=== PATIENT | female | born 1985 | race Caucasian/White ===

== ENCOUNTER 2017-06-30 05:08 | Inpatient (IN) | payer BC, OTHER ==
[2017-06-30] MEDS ORDERED: Albuterol/Ipratropium 3.0-0.5 MG/3 ML Neb Soln NEB ONE (05:29)
[2017-06-30] MEDS ORDERED: Dextrose 5%-Lactated Ringers 1,000 ML IV SCH (05:30)
[2017-06-30] MEDS ORDERED: Scopolamine 1.5 MG Transdermal Patch TOP ONE (05:32)
[2017-06-30] MEDS ORDERED: Acetaminophen 500 MG Tab PO ONE (05:32)
[2017-06-30] MEDS ORDERED: Celecoxib 200 MG Cap PO ONE (05:35)
[2017-06-30] MEDS ORDERED: cefOXitin 2 GM Vial ONE (06:40)
[2017-06-30] MEDS ORDERED: Meropenem 500 MG SDV ONE (06:40)
[2017-06-30] MEDS ORDERED: cefOXitin 2 GM in Sodium Chloride 0.9% 50 ML IV ONE ×2 (07:00→07:15)
[2017-06-30] MEDS ORDERED: Propofol 200 MG/20 ML SDV ONE ×2 (07:06→07:08)
[2017-06-30] MEDS ORDERED: Dexamethasone 4 MG/ML SDV ONE (07:06)
[2017-06-30] MEDS ORDERED: Succinylcholine 200 MG/10 ML MDV ONE ×2 (07:06→07:08)
[2017-06-30] MEDS ORDERED: Ondansetron 4 MG/2 ML SDV ONE (07:06)
[2017-06-30] MEDS ORDERED: Neostigmine Methylsulfate 1 MG/ML 5 ML Syringe ONE (07:08)
[2017-06-30] MEDS ORDERED: Glycopyrrolate 0.2 MG/ML 5 ML MDV ONE (07:08)
[2017-06-30] MEDS ORDERED: Lidocaine 2% 100 MG/5 ML Syringe IVPUSH ONE ×2 (08:00→08:45)
[2017-06-30] MEDS ORDERED: Lidocaine 0.4%/D5W 2 GM/500 ML BAG IV SCH (08:00)
[2017-06-30] MEDS ORDERED: Ketamine 500 MG/5 ML MDV IV SCH (08:00)
[2017-06-30] MEDS ORDERED: Ropivacaine 58 ML, Dexamethasone 8 MG, EPINEPHrine 0.4 MG, Sodium Chloride 0.9% 19.6 ML NERVRT SCH ×4 (08:00)
[2017-06-30] MEDS ORDERED: Labetalol 20 MG/4 ML Syringe ONE (08:17)
[2017-06-30] MEDS ORDERED: fentaNYL 100 MCG/2 ML SDV IVPUSH ONE (09:39)
[2017-06-30] MEDS ORDERED: hydrOXYzine HCl 100 MG/2 ML SDV IM ONE ×2 (09:45→11:45)
[2017-06-30] MEDS ORDERED: Ondansetron 4 MG/2 ML SDV IVPUSH ONE (09:45)
[2017-06-30] MEDS: Metoclopramide 10 MG/2 ML SDV IVPUSH PRN ×2 (11:30→19:23)
[2017-06-30] MEDS ORDERED: Meperidine PF 100 MG/ML Syringe IM ONE (11:45)
[2017-06-30] MEDS ORDERED: Ondansetron 4 MG/2 ML SDV IVPUSH PRN (12:00)
[2017-06-30] MEDS ORDERED: Albuterol/Ipratropium 3.0-0.5 MG/3 ML Neb Soln INH PRN (12:00)
[2017-06-30] MEDS ORDERED: hydrOXYzine HCl 100 MG/2 ML SDV IM PRN (12:00)
[2017-06-30] MEDS ORDERED: diphenhydrAMINE 50 MG/ML SDV IVPUSH PRN (12:00)
[2017-06-30] MEDS: Pantoprazole 40 MG Vial IVPUSH SCH (13:07)
[2017-06-30] MEDS: cefOXitin 2 GM in Sodium Chloride 0.9% 50 ML IV SCH ×2 (13:08→19:29)
[2017-06-30] MEDS: Dextrose 5%-Lactated Ringers 1,000 ML IV SCH ×2 (13:15→23:17)
[2017-06-30] MEDS: Acetaminophen Soln 650 MG/20.3 ML UD Cup PO SCH ×2 (14:47→21:10)
[2017-06-30] MEDS: Albuterol/Ipratropium 3.0-0.5 MG/3 ML Neb Soln INH SCH ×2 (14:52→22:32)
[2017-06-30] MEDS: MVI, Adult with Vitamin K 10 ML, Thiamine 200 MG, Chromium/Copper/Mang/Selen/Zn 1 ML in... IV SCH ×4 (16:07)
[2017-06-30] MEDS ORDERED: Heparin Sodium 5,000 Units/ML Vial SUBCUT SCH (18:00)
[2017-06-30] MEDS ORDERED: Coagulation Factor VIIa Recombinant (per MCG) 2 MG Vial IVPUSH STA (18:09)
[2017-06-30] MEDS: LORazepam 2 MG/ML MDV IVPUSH PRN (22:14)
[2017-07-01] MEDS ORDERED: Iohexol 647 MG/ML 50 ML SDV PO SCH (02:00)
[2017-07-01] MEDS: Acetaminophen Soln 650 MG/20.3 ML UD Cup PO SCH ×2 (02:21→14:44)
[2017-07-01] MEDS: LORazepam 2 MG/ML MDV IVPUSH PRN ×4 (02:25→22:25)
[2017-07-01] MEDS: cefOXitin 2 GM in Sodium Chloride 0.9% 50 ML IV SCH ×2 (02:35→07:00)
[2017-07-01] MEDS: Dextrose 5%-Lactated Ringers 1,000 ML IV SCH ×2 (05:53→23:41)
[2017-07-01] MEDS: Albuterol/Ipratropium 3.0-0.5 MG/3 ML Neb Soln INH SCH ×4 (07:20→20:36)
[2017-07-01] MEDS ORDERED: Albuterol 8 GM Inhaler INH PRN (07:50)
[2017-07-01] MEDS ORDERED: Albuterol/Ipratropium 3.0-0.5 MG/3 ML Neb Soln INH PRN (07:50)
[2017-07-01] MEDS ORDERED: Ketorolac 60 MG/2 ML SDV IM ONE (08:00)
[2017-07-01] MEDS ORDERED: Celecoxib 200 MG Cap PO SCH (08:00)
[2017-07-01] MEDS ORDERED: Acetaminophen 1,000 MG in Premix Bag 1 BAG IV SCH (08:00)
[2017-07-01] MEDS ORDERED: Acetaminophen/HYDROcodone 108-2.5 MG/5 ML Soln 15 ML UD Cup PO SCH (08:00)
--- NOTE | 2017-07-01 08:42 | PN ---
DATE OF SERVICE: 07/01/2017 SUBJECTIVE: Yasmine has been having some difficulty swallowing. Her upper GI did show that she was tight but it is emptying. Her lidocaine was discontinued during the night. REVIEW OF SYSTEMS: Remainder of review of systems negative for any pertinent positives and negatives. OBJECTIVE: GENERAL: Yasmine Hernandez is a 32-year-old female. VITAL SIGNS: TPR is 98.9, 94, 18, blood pressure 140/89. HEENT: Negative. NECK: Supple. HEART: Regular rate and rhythm. LUNGS: Clear. ABDOMEN: Dressings dry and intact. Abdominal binder is on. CHAYA drain has put out 85 mL of a light pink drainage. EXTREMITIES: Without peripheral edema. ASSESSMENT: Laparoscopic Milton-en-Y gastric bypass surgery. PLAN: 1. Sips of clear liquids. 2. Decrease IV to 100 mL per hour. 3. Change acetaminophen to 1000 mg IV q.6 hours today. 4. Start albuterol inhaler 2 puffs q.4 hours p.r.n. shortness of breath. 5. Albuterol ipratropium 3 mL inhaled as directed every 6 hours p.r.n. as she takes at home. 6. Flexeril 10 mg t.i.d. p.r.n. muscle spasms. 7. Lexapro 20 mg p.o. daily. 8. Hydrochlorothiazide 25 mg p.o. daily. 9. Discontinue Celebrex today and give Toradol 60 mg IM 1 time. She is unable to swallow pills. The other pills they are nursing staff, either open or crush. 10.Good pulmonary toilet. 11.We will evaluate p.r.n. or in a.m. Aggie Webber PA-C /[id number]
--- NOTE | 2017-07-01 08:44 | CR ---
UGI wo KUB HISTORY: eval R -Y GBP FINDINGS: After administration of oral contrast, upright views were obtained. Post operative changes gastric bypass. Surgical drains in place. No evidence for leak. Contrast passes freely into proximal small bowel loops. IMPRESSION: No evidence for leak or obstruction.
[2017-07-01] MEDS: Acetaminophen 1,000 MG in Premix Bag 1 BAG IV PRN ×2 (10:40→19:57)
[2017-07-01] MEDS: Escitalopram 20 MG Tab PO SCH (10:41)
[2017-07-01] MEDS: Hydrochlorothiazide 25 MG Tab PO SCH (10:41)
[2017-07-01] MEDS: Metoclopramide 10 MG/2 ML SDV IVPUSH PRN ×2 (10:41→18:30)
[2017-07-01] MEDS: SCOPOLAMINE PATCH CHECK TOP SCH (10:41)
[2017-07-01] MEDS: Cyclobenzaprine 10 MG Tab PO PRN (10:41)
[2017-07-01] MEDS: Pantoprazole 40 MG Vial IVPUSH SCH (12:19)
[2017-07-01] MEDS ORDERED: Acetaminophen/HYDROcodone 108-2.5 MG/5 ML Soln 15 ML UD Cup PO PRN (14:00)
[2017-07-01] MEDS: MVI, Adult with Vitamin K 10 ML, Thiamine 200 MG, Chromium/Copper/Mang/Selen/Zn 1 ML in... IV SCH ×4 (15:45)
[2017-07-01] MEDS: Labetalol 20 MG/4 ML Syringe IVPUSH PRN ×2 (21:40→22:53)
[2017-07-02] MEDS: LORazepam 2 MG/ML MDV IVPUSH PRN ×2 (03:53→22:16)
[2017-07-02] MEDS: Acetaminophen 1,000 MG in Premix Bag 1 BAG IV PRN (03:55)
[2017-07-02] MEDS: Albuterol/Ipratropium 3.0-0.5 MG/3 ML Neb Soln INH SCH ×4 (07:21→21:55)
[2017-07-02] MEDS ORDERED: methylPREDNISolone Sodium Succinate 40 MG/1 ML SDV IVPUSH SCH (08:00)
--- NOTE | 2017-07-02 08:26 | PN ---
DATE OF SERVICE: 07/02/2017 SUBJECTIVE: Yasmine is postop day #2. She is able to swallow a little bit better today. Within the past 24 hours, she did have 540 in. She feels like it is starting to open up a little bit. REVIEW OF SYSTEMS: Remainder of review of systems negative for any pertinent positives and negatives. OBJECTIVE: GENERAL: Yasmine Hernandez is a 32-year-old female. She is lying in bed. She is more talkative today, feeling better. VITAL SIGNS: TPR is 98.6, 70, 17, blood pressure 153/96. HEENT: Negative. NECK: Supple. HEART: Regular rate and rhythm. LUNGS: Clear. ABDOMEN: Dressings dry and intact. Abdominal binder is on. CHAYA drain intact, draining a pink serosanguineous drainage. EXTREMITIES: Without peripheral edema. ASSESSMENT: Laparoscopic Milton-en-Y gastric bypass surgery. PLAN: 1. Step-1 diet start gradually. 2. Rx Solu-Medrol 80 mg IV q.12 hours today, give 3 med cups to try to drink 1 q.20 minutes or 3 per hour. 3. Dressing off, may shower. 4. We will evaluate p.r.n. or in a.m. Aggie Webber PA-C /[id number]
[2017-07-02] MEDS ORDERED: Cyanocobalamin (Vitamin B12) 1,000 MCG/ML SDV IM ONE (09:00)
[2017-07-02] MEDS: Escitalopram 20 MG Tab PO SCH (09:31)
[2017-07-02] MEDS: Hydrochlorothiazide 25 MG Tab PO SCH (09:31)
[2017-07-02] MEDS: SCOPOLAMINE PATCH CHECK TOP SCH (09:32)
[2017-07-02] MEDS: Cyclobenzaprine 10 MG Tab PO PRN (09:40)
[2017-07-02] MEDS: Dextrose 5%-Lactated Ringers 1,000 ML IV SCH (11:07)
[2017-07-02] MEDS: Pantoprazole 40 MG Vial IVPUSH SCH (11:32)
[2017-07-03] MEDS: Albuterol/Ipratropium 3.0-0.5 MG/3 ML Neb Soln INH SCH ×2 (07:13→11:10)
[2017-07-03] MEDS ORDERED: Pantoprazole 40 MG Delayed-Release Granules 1 Packet PO SCH (07:30)
[2017-07-03] MEDS ORDERED: methylPREDNISolone Sodium Succinate 125 MG/2 ML SDV IVPUSH ONE (08:30)
[2017-07-03] MEDS: Escitalopram 20 MG Tab PO SCH (08:32)
[2017-07-03] MEDS: Hydrochlorothiazide 25 MG Tab PO SCH (08:32)
--- NOTE | 2017-07-06 09:44 | OR ---
DATE OF PROCEDURE: 06/30/2017 PREOPERATIVE DIAGNOSIS: Morbid obesity. POSTOPERATIVE DIAGNOSES: 1. Morbid obesity. 2. Marked hepatomegaly. 3. Peritoneal nodules over surface of omentum and lesser curvature of stomach. OPERATIVE PROCEDURE: 1. Laparoscopic Milton-en-Y gastric bypass along with gastroenterostomy (92799). 2. [place]-Cut needle liver biopsy (95290). 3. Excision of peritoneal nodule overlying omentum (42538). 4. Excision of a peritoneal nodule over lesser curvature of the stomach (07552). ANESTHESIA: General. INDICATIONS FOR PROCEDURE: A 32-year-old female presenting with longstanding morbid obesity and increasingly significant comorbidities. After preoperative evaluation and discussion, she wished to proceed with a gastric bypass procedure. Potential risks of the procedure including bleeding, infection, leaks from the various GI tract closures, problems with bowel obstruction over time, as well as possibility of cardiopulmonary, septic, or hemorrhagic complications leading to , were all discussed, and the patient wishes to proceed. DETAILS OF PROCEDURE: The patient was taken to the operating room and placed in a supine position. After general endotracheal anesthesia was induced, she was converted to a lithotomy position and orogastric tube, and the abdomen was then prepped and draped. At 15 cm inferior, 5 cm left of xiphoid process, a transverse incision was made and peritoneal cavity entered under direct vision with an Optiview trocar. The peritoneal cavity was inflated to 15 mmHg pressure with CO2 and laparoscope reinserted. No underlying trocar insertion site injuries were seen. At this point, bilateral subcostal transversus abdominis plane blocks were placed using standard solution. The location of the needle was visually confirmed to be just underneath the peritoneum within the transversus abdominis muscle. Following this, 5 additional trocars were placed across the upper mid abdomen, and general exploration was undertaken. The patient was noted to have a marked hepatomegaly with the liver volume being roughly 2 or 3 times normal. Liver grossly fatty infiltrated. During the course of dissection, 2 reddish peritoneal nodules were identified. These were uncertain in nature. One was a nodule over the midportion of the omentum, which measured around 4 mm. This was excised using Harmonic scalpel. A second nodule was then noted subsequently on the lesser curvature of the stomach, more or less flush with the attachment with the lesser omentum, which measured around 8 mm in size. This likewise was excised. At this point, the omentum was divided in the midline up to the level of the transverse colon. This allowed identification of the small bowel to the ligament of Treitz. The small bowel was then traced out 200 cm distal to that point, was divided transversely with a UMU stapler. The small bowel was then traced out additional 200 cm, where a caun-yq-ysuh enteroenterostomy was accomplished with an internal firing of the Endo-UMU 60 mm stapler. The common opening was then closed transversely with the same stapler, the angles anastomosed, and mesenteric defect approximated with some 0 Ethibond stitch, along with fibrin sealant. The divided end of the Milton limb was from the mesentery for a few centimeters, which allowed an antecolic position of the Milton limb up to the level of the gastroesophageal junction without tension. The liver was then retracted anteriorly. The patient was noted not to have any significant hiatal hernia. The gastrointestinal balloon catheter was inflated to 15 mL and pulled up snugly against the EG junction. Gastric wall over the apex balloon was marked with electrocautery, and the balloon catheter was deflated and pulled up from the esophagus. The lesser omental tissue adjacent to gastric cardia was then incised, allowing dissection behind the stomach at that level. The pouch formation was initiated with a transverse firing of the UMU stapler at the level of the cauterized angela on the gastric cardia. The pouch was then completed with 2 additional firings of the UMU stapler up to and through the angle of His. Upon completion of the pouch, both staple lines were noted to be intact. The anvil of a 25 mm EEA stapler was attached to a [place] sump type tube. The latter was brought down through the mouth and taken out through a small opening in the gastric pouch, allowing the anvil likewise to be pulled down to within the gastric pouch. The divided end of the Milton limb was then opened and main body of the EEA stapler was passed several centimeters in the lumen of the small bowel, brought up the anvil and united with it, thus creating the gastrojejunostomy. The anastomosis was then reinforced with some 3-0 Vicryl seromuscular stitch, along with fibrin sealant. A leak test was accomplished with injection of 120 mL of air in the gastric pouch while submerged with cefoxitin-containing saline solution. No leaks were identified. A single Elmo-Castano drain was taken out through the left subcostal trocar site and placed adjacent to the gastrojejunostomy and from there up into the splenic fossa. At that point, no further problems noted, trocars were removed, and the peritoneal cavity was deflated. The incisions were closed with some 4-0 Vicryl skin stitch, which was also used to affix the drain. Dressings were applied. The patient was taken to the recovery room in satisfactory condition. There were no evident complications. Chris Roberto MD /[id number]
--- NOTE | 2017-07-06 11:24 | DISCH ---
ADMISSION DIAGNOSES: 1. Morbid obesity with body mass index of 40.6. 2. Post-traumatic stress disorder. 3. Hypothyroidism. 4. Mild intermittent asthma, "treatment agreement.". 5. Chronic pain medication. 6. Chronic neck pain. 7. Recurrent major depression disorder. 8. Dysthymia. DISCHARGE DIAGNOSIS: Laparoscopic Milton-en-Y gastric bypass surgery. HISTORY: Yasmine Hernandez is a 32-year-old female with longstanding history of morbid obesity and increasing comorbidities. After preoperative evaluation and discussion of possible risks and benefits, she wished to proceed with surgical procedure. HOSPITAL COURSE: Yasmine had her surgery on 06/30/2017. She had no operative complications. On postoperative day #1, she had some dysphagia, with difficulty swallowing. On 07/02/2017, she was started on Solu-Medrol 80 mg IV, and after the first dose, she was able to start on a step-1 gastric bypass diet, and her oral intake was 1280. She was up ambulating. Vital signs were stable. She has received adequate dietary instruction, and she was ready to be discharged to home on postoperative day #3, on 07/03/2017. PHYSICAL EXAMINATION: GENERAL: Yasmine Hernandez is a 32-year-old female. VITAL SIGNS: Height is 5 feet 7 inches and weight is 259 pounds. TPR with temperature of 97.9, pulse of 103, respirations of 16; and blood pressure of 142/83. HEENT: Negative. NECK: Supple. HEART: Regular rate and rhythm. LUNGS: Clear. ABDOMEN: Sutures look good. 4x4's over CHAYA drain site. Abdominal binder is on. EXTREMITIES: Without peripheral edema. DISPOSITION: Discharged to home. CONDITION: Stable and improving. FOLLOWUP APPOINTMENT: On 07/07/2017 at 9:15 a.m. at [place], [place]. HOME MEDICATIONS: 1. Zofran ODT 4 mg every four hours p.r.n. nausea. 2. Medrol 4 mg Dosepak, take as directed. 3. She is to resume her home medication of Celebrex 200 mg daily for 14 days. 4. Alprazolam 0.5 mg oral daily p.r.n. anxiety. 5. ProAir inhaler two puffs inhalation every six hours p.r.n. shortness of breath. 6. Flexeril 10 mg three times a day p.r.n. muscle spasms. 7. Lexapro 20 mg oral daily. 8. Hydrochlorothiazide 25 mg oral daily. 9. Hydrocodone/acetaminophen 10/325 one tablet every 8 hours p.r.n. pain. 10.Synthroid 100 mcg oral daily. 11.Depo-Provera continue as scheduled. 12.Discontinue taking the meloxicam. DIET AFTER DISCHARGE: Step-1 gastric bypass diet with protein shakes only. Drink 64 ounces of water daily. ACTIVITY: No lifting greater than 10 pounds for two weeks. Walk at least six times daily inside your house. Driving, do not drive for one week or while on pain medication. Shower/bathing, she may shower. WOUND CARE: Keep operative site clean and dry. Wound incision care, wear abdominal binder for two weeks, and then as tolerated. DISCHARGE INSTRUCTIONS: Notify provider if any fever, increased pain, drainage, nausea, vomiting, and use incentive spirometer 10 times every hour while awake for two weeks.
== END 2017-07-03 10:45 | disposition home or self-care (01) | DRG 621 ==
LOC: JP.SDS 05:08 → JP.SDSSCHI 05:08 → EDSTATUS 07:30 → JP.2SS 09:15
PROVIDERS: ADMIT Surgery; ATTEND Surgery
PROC: 0D164ZA Bypass Stomach to Jejunum, Percutaneous Endoscopic Approach (ICD-10-PCS; principal; 2017-06-30)
PROC: 0FB04ZX Excision of Liver, Percutaneous Endoscopic Approach, Diagnostic (ICD-10-PCS; 2017-06-30)
PROC: 0DBU4ZX Excision of Omentum, Percutaneous Endoscopic Approach, Diagnostic (ICD-10-PCS; 2017-06-30)
PROC: 0DB64ZX Excision of Stomach, Percutaneous Endoscopic Approach, Diagnostic (ICD-10-PCS; 2017-06-30)
PROC: 3E0T3BZ Introduction of Anesthetic Agent into Peripheral Nerves and Plexi, Percutaneous Approach (ICD-10-PCS; 2017-06-30)
DX: E66.01 Morbid (severe) obesity due to excess calories (principal); Z68.41 Body mass index [BMI] 40.0-44.9, adult; R16.0 Hepatomegaly, not elsewhere classified; K31.89 Other diseases of stomach and duodenum; K92.89 Other specified diseases of the digestive system; I10 Essential (primary) hypertension; E11.9 Type 2 diabetes mellitus without complications; G89.29 Other chronic pain; J45.20 Mild intermittent asthma, uncomplicated; E03.9 Hypothyroidism, unspecified; F32.9 Major depressive disorder, single episode, unspecified; F43.10 Post-traumatic stress disorder, unspecified; Z86.14 Personal history of Methicillin resistant Staphylococcus aureus infection; Z79.891 Long term (current) use of opiate analgesic; Z88.0 Allergy status to penicillin; Z88.2 Allergy status to sulfonamides; Z88.8 Allergy status to other drugs, medicaments and biological substances; F34.1 Dysthymic disorder; R13.10 Dysphagia, unspecified; M54.2 Cervicalgia
CPT/HCPCS: 36415; 74240; 74240-26; 82962; 86850; 86900; 86901; 88305; 88307; 88313; 88341; 88342; 94640; A9270-GY; C9113; J0131; J0171; J0330; J0694; J1100; J1885; J2001; J2060; J2175; J2185; J2405; J2704; J2710; J2765; J2795; J2920; J2930; J3010; J3410; J3411; J3420; J7030; J7042; J7050; J7189; J7620; Q9967

== ENCOUNTER 2017-08-27 07:53 | Day surgery (SDC) | payer OTHER ==
[2017-08-27] MEDS ORDERED: Lactated Ringers 1,000 ML IV SCH (09:00)
[2017-08-27] MEDS ORDERED: Cyanocobalamin (Vitamin B12) 1,000 MCG/ML SDV IM ONE (09:00)
[2017-08-27] MEDS ORDERED: Glycopyrrolate 0.2 MG/ML 2 ML SYRINGE IVPUSH ONE (09:30)
[2017-08-27] MEDS ORDERED: Midazolam 1 MG/ML 2 ML SDV ONE (10:21)
[2017-08-27] MEDS ORDERED: Propofol 200 MG/20 ML SDV ONE (10:21)
[2017-08-27] MEDS ORDERED: fentaNYL 100 MCG/2 ML SDV ONE (10:21)
[2017-08-27] MEDS ORDERED: MVI, Adult with Vitamin K 10 ML, Thiamine 200 MG, Chromium/Copper/Mang/Selen/Zn 1 ML in... IV ONE ×4 (10:30)
--- NOTE | 2017-08-31 18:04 | OR ---
DATE OF PROCEDURE: 08/27/2017 PREOPERATIVE DIAGNOSIS: Probable stricture at gastrojejunostomy. POSTOPERATIVE DIAGNOSIS: Stricture at gastrojejunostomy. OPERATIVE PROCEDURE: Upper GI endoscopy with dilation of gastrojejunostomy (87708). ANESTHESIA: IV sedation. INDICATION FOR PROCEDURE: This is a 32-year-old female status post Milton-en-Y gastric bypass on 08/31/2016 and she presents now with symptoms suggestive of stricturing at her gastrojejunostomy. Plan is to proceed with an upper GI endoscopy with dilation as indicated. Potential risks including bleeding and perforation were discussed, and the patient wishes to proceed. DETAILS OF PROCEDURE: The patient was taken to the operating room and placed in a left lateral decubitus position. IV sedation was administered, after which the upper GI endoscope was passed orally through the length of the esophagus and into the gastric pouch. No retained food or fluid was noted. The patient was noted to have a moderate stricture at the gastrojejunostomy with estimated diameter of around 8 mm. A Bard gastrointestinal balloon catheter was centered across the anastomosis and inflated to 36-Kinyarwanda size. This was held in position for 1 minute, after which the balloon catheter was deflated and withdrawn. The scope was then easily passed through the anastomosis. No complications noted. The procedure concluded. The patient was taken to the recovery room in satisfactory condition. Chris Roberto MD /[id number]
== END 2017-08-27 12:00 | disposition home or self-care (01) ==
LOC: JP.SDS 07:53
PROVIDERS: ATTEND Surgery
DX: K95.89 Other complications of other bariatric procedure (principal); Z88.0 Allergy status to penicillin; Z88.2 Allergy status to sulfonamides; Z88.8 Allergy status to other drugs, medicaments and biological substances
CPT/HCPCS: J2250; J2704; J3010; J3411; J3420; J7120

== ENCOUNTER 2017-09-18 06:50 | Day surgery (SDC) | payer OTHER ==
[2017-09-18] MEDS ORDERED: Lactated Ringers 1,000 ML IV SCH ×2 (07:30→10:45)
[2017-09-18] MEDS ORDERED: Cyanocobalamin (Vitamin B12) 1,000 MCG/ML SDV IM ONE (07:30)
[2017-09-18] MEDS ORDERED: fentaNYL 100 MCG/2 ML SDV ONE (07:32)
[2017-09-18] MEDS ORDERED: Midazolam 1 MG/ML 2 ML SDV ONE (07:32)
[2017-09-18] MEDS ORDERED: Propofol 200 MG/20 ML SDV ONE (07:32)
[2017-09-18] MEDS ORDERED: Glycopyrrolate 0.2 MG/ML 2 ML SYRINGE IVPUSH ONE (07:45)
[2017-09-18] MEDS ORDERED: MVI, Adult with Vitamin K 10 ML, Thiamine 200 MG, Chromium/Copper/Mang/Selen/Zn 1 ML in... IV ONE ×4 (09:00)
--- NOTE | 2017-09-18 09:30 | OR ---
DATE OF PROCEDURE: 09/18/2017 PREOPERATIVE DIAGNOSIS: Nausea and vomiting, status post Milton-en-Y gastric bypass on June 30, 2017; possible strictured gastrojejunostomy. POSTOPERATIVE DIAGNOSIS: Nausea and vomiting, status post Milton-en-Y gastric bypass on June 30, 2017; possible strictured gastrojejunostomy. No evidence of strictured gastrojejunostomy. PROCEDURE: Esophagogastrojejunostomy. ANESTHESIA: IV anesthesia with monitored anesthesia care. INDICATION: This 32-year-old white female underwent a Milton-en-Y gastric bypass on June 30, 2017 for morbid obesity. Almost a month ago, she had to undergo a gastric dilatation for a stricture at her gastrojejunostomy. This was manifested by nausea and vomiting. She now notes recurrence of the nausea and vomiting, and is referred for a repeat upper endoscopy with dilatation. I counseled her for this, and she gave her informed consent to proceed. DESCRIPTION OF PROCEDURE: The patient was placed in the left lateral decubitus position. IV anesthesia was administered by the Anesthesia Service. Time-out was held. The flexible video Olympus upper endoscope was passed through her mouth, down her esophagus, and into her gastric remnant. The scope was easily passed through the anastomosis into the jejunum. There was no evidence of stricture. It appeared widely patent. The scope was then withdrawn examining the mucosa throughout. The mucosa throughout appeared unremarkable. The scope was then removed. She tolerated the procedure well. Leeroy Bailey MD /[id number]
[2017-09-18] MEDS ORDERED: Hyoscyamine 0.125 MG Tab.SL SL ONE (10:20)
== END 2017-09-18 11:21 | disposition home or self-care (01) ==
LOC: JP.SDS 06:50
PROVIDERS: ATTEND Surgery
DX: R11.2 Nausea with vomiting, unspecified (principal); J45.909 Unspecified asthma, uncomplicated; E03.9 Hypothyroidism, unspecified; Z98.84 Bariatric surgery status; Z88.2 Allergy status to sulfonamides; Z88.8 Allergy status to other drugs, medicaments and biological substances; Z88.0 Allergy status to penicillin
CPT/HCPCS: 43235; A9270; J2250; J2704; J3010; J3411; J3420; J7120

== ENCOUNTER 2017-09-23 05:45 | Day surgery (SDC) | payer OTHER ==
[2017-09-23] MEDS ORDERED: Lactated Ringers 1,000 ML IV ONE (06:30)
[2017-09-23] MEDS ORDERED: Cyanocobalamin (Vitamin B12) 1,000 MCG/ML SDV IM ONE (07:00)
[2017-09-23] MEDS ORDERED: Midazolam 1 MG/ML 2 ML SDV ONE (07:11)
[2017-09-23] MEDS ORDERED: fentaNYL 100 MCG/2 ML SDV ONE (07:11)
[2017-09-23] MEDS ORDERED: Propofol 200 MG/20 ML SDV ONE (07:11)
[2017-09-23] MEDS ORDERED: Glycopyrrolate 0.2 MG/ML 2 ML SDV IVPUSH ONE (07:15)
[2017-09-23] MEDS ORDERED: MVI, Adult with Vitamin K 10 ML, Thiamine 100 MG, Chromium/Copper/Mang/Selen/Zn 1 ML in... IV ONE ×4 (07:30)
[2017-09-23] MEDS ORDERED: Escitalopram 20 MG Tab PO ONE (08:30)
--- NOTE | 2017-09-23 15:58 | OR ---
DATE OF PROCEDURE: 09/23/2017 PREOPERATIVE DIAGNOSIS: Nausea status post Milton-en-Y gastric bypass. POSTOPERATIVE DIAGNOSIS: Nausea status post Milton-en-Y gastric bypass with a mild stricture of gastrojejunostomy. OPERATIVE PROCEDURE: Upper GI endoscopy with dilation of gastrojejunostomy. ANESTHESIA: IV sedation. INDICATION FOR PROCEDURE: This is a 32-year-old status post Milton-en-Y gastric bypass in June. She presents now with some nausea, and the plan is to proceed with upper GI endoscopy with dilation as indicated. Potential risks including bleeding and perforation were discussed, and the patient wishes to proceed. DETAILS OF PROCEDURE: The patient was taken to the operating room and placed in a left lateral decubitus position. IV sedation was administered, after which the upper GI endoscope was passed orally through the length of the esophagus, into the stomach pouch, and from there through the gastrojejunostomy roughly 20 cm into the Milton limb. The patient did have a very mild stricture of the gastrojejunostomy with a 1-cm scope being able to be gently passed through that area. There otherwise were no significant inflammation noted. Bard gastrointestinal balloon catheter was then centered across the anastomosis and inflated to 45-Romansh size which did produce some additional diameter of the gastrojejunostomy. No complications were noted. The scope was then withdrawn. The procedure then concluded. At this point, we will begin the patient on some Levsin 0.125 mg sublingual q.i.d. x5 days and then q.i.d. p.r.n., #50, refill x2; and then Zofran 4 mg ODT q.4 hours p.r.n. nausea, #25, refill x3. We will set her up to follow up with Aggie Webber at [facility] in [place] on 10/06/2017. Chris Roberto MD /[id number]
== END 2017-09-23 10:22 | disposition home or self-care (01) ==
LOC: JP.SDS 05:45
PROVIDERS: ATTEND Surgery
DX: K95.89 Other complications of other bariatric procedure (principal); J45.909 Unspecified asthma, uncomplicated; E03.9 Hypothyroidism, unspecified; E66.9 Obesity, unspecified; Z88.0 Allergy status to penicillin; Z88.2 Allergy status to sulfonamides; Z88.8 Allergy status to other drugs, medicaments and biological substances
CPT/HCPCS: 43233; A9270; J2250; J2704; J3010; J3411; J3420; J7120; J3490

== ENCOUNTER 2018-01-10 17:30 | Emergency (ER) | payer OTHER ==
[2018-01-10] MEDS ORDERED: Sodium Chloride 0.9% 10 ML Syringe FLUSH PRN (18:16)
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
[2018-01-10] MEDS ORDERED: Lactated Ringers 1,000 ML IV SCH (18:30)
[2018-01-10] MEDS ORDERED: Sodium Chloride 0.9% 10 ML Syringe FLUSH ONE (18:47)
[2018-01-10] MEDS ORDERED: Sodium Chloride 0.9% 100 ML IV ONE (18:47)
[2018-01-10] MEDS ORDERED: Iopamidol 612 MG/ML 100 ML Bottle IV SCH (19:00)
== END 2018-01-10 21:32 | disposition home or self-care (01) ==
LOC: JP.ED 17:30
DX: R10.13 Epigastric pain (principal); I10 Essential (primary) hypertension; J45.909 Unspecified asthma, uncomplicated; E03.9 Hypothyroidism, unspecified; Z88.8 Allergy status to other drugs, medicaments and biological substances; Z88.0 Allergy status to penicillin; Z88.2 Allergy status to sulfonamides; Z79.899 Other long term (current) drug therapy; Z87.891 Personal history of nicotine dependence; Z98.84 Bariatric surgery status
CPT/HCPCS: 36415; 74177; 80053; 81001; 83605; 83690; 84484; 85025; 96360; 96361; 99285; J7030; J7050; J7120; Q9967

== ENCOUNTER 2018-01-14 18:43 | Inpatient (IN) | payer OTHER ==
[2018-01-14] MEDS: Dextrose 5%-Lactated Ringers 1,000 ML IV SCH (20:00)
[2018-01-14] MEDS ORDERED: Acetaminophen 325 MG Tab PO PRN (20:21)
[2018-01-14] MEDS ORDERED: Acetaminophen 650 MG Supp RECTAL PRN (20:21)
[2018-01-14] MEDS ORDERED: ALPRAZolam 0.5 MG Tab PO PRN (20:24)
[2018-01-14] MEDS ORDERED: Cyclobenzaprine 10 MG Tab PO PRN (20:31)
[2018-01-14] MEDS ORDERED: Hyoscyamine 0.125 MG Tab.SL SL PRN (20:32)
[2018-01-14] MEDS ORDERED: Albuterol 8 GM Inhaler INH PRN (20:34)
[2018-01-14] MEDS ORDERED: Pantoprazole 40 MG Tab.CR PO SCH (21:00)
[2018-01-14] MEDS ORDERED: Albuterol/Ipratropium 3.0-0.5 MG/3 ML Neb Soln INH PRN (21:06)
[2018-01-14] MEDS: chlorproMAZINE 25 MG Tab PO SCH (21:47)
[2018-01-14] MEDS: Acetaminophen/HYDROcodone 325-10 MG Tab PO PRN (21:47)
[2018-01-14] MEDS ORDERED: Escitalopram 20 MG Tab PO SCH (22:00)
[2018-01-14] MEDS ORDERED: Escitalopram 10 MG Tab ONE (23:15)
[2018-01-15] MEDS: Dextrose 5%-Lactated Ringers 1,000 ML IV SCH ×2 (05:04→15:37)
[2018-01-15] MEDS: chlorproMAZINE 25 MG Tab PO SCH ×3 (05:15→15:38)
[2018-01-15] MEDS: Levothyroxine 112 MCG Tab PO SCH ×2 (08:31→10:29)
[2018-01-15] MEDS: Pantoprazole 40 MG Tab.CR PO SCH ×3 (08:31→15:39)
[2018-01-15] MEDS ORDERED: Iohexol 647 MG/ML 50 ML SDV PO SCH (08:45)
[2018-01-15] MEDS ORDERED: Potassium Chloride 10% 20 MEQ/15 ML Soln 15 ML UD Cup PO SCH (09:00)
--- NOTE | 2018-01-15 10:14 | CR ---
UGI w Small Bowel wo Air CLINICAL HISTORY: Status post Milton-en-Y gastric bypass, abdominal pain FINDINGS: Patient swallowed water-soluble contrast without difficulty. The esophagus had a normal con tour. The gastric bypass shows no evidence of leakage or obstruction. The mid small bowel fills witho ut significant distention or evidence of inflammatory change. Small bowel follow-through shows normal transit through the small bowel to the ascending colon over a pproximately 15 minutes. Impression: Status post Milton-en-Y gastric bypass with no evidence of obstruction
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
--- NOTE | 2018-01-15 13:12 | HP ---
ADMISSION DIAGNOSIS: Mid epigastric abdominal pain, persistent belching. HISTORY OF PRESENT ILLNESS: Yasmine Hernandez is a direct admit. She is a 32-year-old female, who had Milton-en-Y gastric bypass surgery DICTATION ENDS HERE Aggie Webber PA-C /[id number]
[2018-01-15] MEDS: Acetaminophen/HYDROcodone 325-10 MG Tab PO PRN (15:37)
== END 2018-01-15 17:30 | disposition home or self-care (01) | DRG 392 ==
LOC: JP.2SS 18:43
PROVIDERS: ADMIT Physician Assistant Medical; ATTEND Surgery
DX: R10.13 Epigastric pain (principal); K91.2 Postsurgical malabsorption, not elsewhere classified; F33.9 Major depressive disorder, recurrent, unspecified; R14.2 Eructation; G51.0 Bell's palsy; F43.10 Post-traumatic stress disorder, unspecified; F41.9 Anxiety disorder, unspecified; G89.29 Other chronic pain; M54.2 Cervicalgia; M54.9 Dorsalgia, unspecified; E53.8 Deficiency of other specified B group vitamins; E03.9 Hypothyroidism, unspecified; J45.20 Mild intermittent asthma, uncomplicated; H54.7 Unspecified visual loss; E66.9 Obesity, unspecified; Z86.14 Personal history of Methicillin resistant Staphylococcus aureus infection; Z87.891 Personal history of nicotine dependence; Z88.0 Allergy status to penicillin; Z88.2 Allergy status to sulfonamides; Z98.84 Bariatric surgery status; Z79.899 Other long term (current) drug therapy; Z88.8 Allergy status to other drugs, medicaments and biological substances; Z90.49 Acquired absence of other specified parts of digestive tract
CPT/HCPCS: 36415; 74245; 74245-26; 80053; 80305; 81001; 82150; 83690; 83735; 84100; 85025; 87086; A9270-GY; J7042; Q9967